=== PATIENT | male | born 1995 | race Caucasian/White ===

== ENCOUNTER 2019-09-25 11:11 | Emergency (ER) | payer BC ==
[~2019-09-25] VITALS: Ht 172.7 cm; Wt 68.2 kg
[2019-09-25 11:17] VITALS: TEMP 97.9
[2019-09-25] MEDS ORDERED: PROZAC40 MG PO (11:20)
[2019-09-25 11:53] LABS: BASO % 0.6 % (0.0-2.0); EOS # 0.1 (0.0-0.7); EOS % 1.5 % (0-4.0); GRAN # 4.4 (1.4-6.5); GRAN % 68.1 % (42.2-75.2); HEMATOCRIT 50.7 % (42.0-52.0); HEMOGLOBIN 17.2 g/dl (13.5-18.0); LYMPH # 1.5 (1.2-3.4); LYMPH % 22.9 % (20.0-51.0); MEAN CELL VOLUME 90 fl (80.0-100.0); MEAN CORPUSCULAR HEMOGLOBIN 30 pg (27.0-31.0); MEAN CORPUSCULAR HGB CONC 34 g/dl (33.0-37.0); MEAN PLATELET VOLUME 11.6 fl (7.4-10.4); MONO # 0.4 (0.1-0.6); MONO % 6.7 % (1.7-9.3); PLATELET COUNT 151 K/mm3 (130-400); RED BLOOD COUNT 5.66 M/mm3 (4.20-5.60); REDCELL DISTRIBUTION WIDTH-CV 12.4 % (11.5-14.5)
[2019-09-25 12:02] LABS: ALANINE AMINOTRANSFERASE 28 U/L (21-72); ALBUMIN 5.2 gm/dL (3.5-5.0); ALKALINE PHOSPHATASE 63 U/L (50-136); ANION GAP 13 mmol/L (7-16); AST,SGOT 34 U/L (15-37); BLOOD UREA NITROGEN 17 mg/dL (9-20); CALCIUM 10.1 mg/dL (8.4-10.2); CARBON DIOXIDE 24 mmol/L (22-30); CHLORIDE 103 mmol/L (98-107); CREATININE, serum 0.89 (0.66-1.25); GLUCOSE 141 mg/dL (74-106); LIPASE 42 U/L (23-300); POTASSIUM 3.6 mmol/L (3.4-5.0); SODIUM 141 mmol/L (137-145); TOTAL PROTEIN 8.3 gm/dL (6.4-8.2)
[2019-09-25 12:17] LABS: TROPONIN-I < 0.012 ng/mL (0.000-0.035)
[2019-09-25 12:37] VITALS: BP 108/68; PULSE 71
[2019-09-25] MEDS ORDERED: ATARAX 25MG25 MG/TAB PO (12:43)
== END 2019-09-25 12:55 | disposition home or self-care (01) ==
LOC: COL.ER 11:11
PROVIDERS: Emergency Medicine
DX: R07.89 Other chest pain (principal); F41.9 Anxiety disorder, unspecified; F32.9 Major depressive disorder, single episode, unspecified
CPT/HCPCS: J1885; J2405